=== PATIENT | male | born 1970 | race Caucasian/White ===

== ENCOUNTER 2024-04-14 04:30 | Emergency (ER) | payer OTHER, SELFPAY ==
[2024-04-14] VITALS (11 sets, daily range): BP systolic 102–122; BP diastolic 64–75; PULSE 57–76; RESP 16–21; TEMP 36.5–36.7; O2SAT 92–98; BMI 38.0
--- NOTE | 2024-04-14 04:51 | ED_ITS ---
HPI - General Adult General Chief complaint: Abdominal Pain Stated complaint: ABD Pain, Bloody stool, Nausea Time Seen by Provider: 04/14/24 04:37 Source: patient Mode of arrival: Ambulatory Limitations: no limitations History of Present Illness HPI narrative: Patient is a 54-year-old male. Has had approximately 1 week of bright red blood per rectum. He states that this morning he started to have abdominal cramping. Some nausea but no vomiting. He was not on blood thinners. No urinary symptoms. He has had his gallbladder removed and an inguinal hernia repair but no other abdominal surgeries. He has had a colonoscopy within the past 5 years. Was told that he had irritable bowel but otherwise no other abnormalities noted. He does have history of atrial fibrillation. Has had an ablation. Also has a history of a pulmonary embolism and was on anticoagulation for about 3 months afterwards. This was attributed to the COVID vaccine. He was no longer on anticoagulation. Related Data Allergies Allergy/AdvReac Type Severity Reaction Status Date / Time No Known Drug Allergies Allergy Verified 04/14/24 05:00 Review of Systems Review of Systems ROS Unobtainable: All systems reviewed & are unremarkable except as noted in HPI and below Patient History Social History Smoking Status: Never smoker Exam Initial Vital Signs Initial Vital Signs: Vital Signs Pulse Rate 62 04/14/24 04:37 Respiratory Rate 16 04/14/24 04:37 Pulse Oximetry 98 04/14/24 04:37 Const General: cooperative, comfortable and No ill appearing HENMT Head: normal to inspection and normocephalic Resp Effort & Inspection: normal respiratory effort Auscultation: clear to auscultation bilaterally Cardio Rate: regular rate Rhythm: regular rhythm GI Inspection: normal to inspection Palpation: soft, No firm and No tender Skin General: no rashes or lesions noted Neuro General: patient alert, patient awake, patient oriented x3 and moves all extremities Extrem General: normal to inspection and capillary refill normal Course Orders Ordered: ED Orders 04/14/24 04:44 Complete Blood Count AUTO DIFF Stat Comprehensive Metabolic Panel Stat Lipase Stat 04/14/24 04:52 CT abdomen pelvis w con Stat 04/14/24 04:54 GI Panel (Film Array) Stat Urine Culture Stat Urine Microscopic Stat Discontinued Medications Hydrocodone Bitart/Acetaminophen (Hydrocodone/Acet 5/325 Tablet) 1 tab PO NOW ONE Stop: 04/14/24 05:17 Last Admin: 04/14/24 05:39 Dose: Not Given Documented By: RADHA Ketorolac Tromethamine (Ketorolac 30 Mg/Ml Vial) 30 mg IV NOW ONE Stop: 04/14/24 05:31 Last Admin: 04/14/24 05:32 Dose: 30 mg Documented By: AFRICA Vital Signs Vital signs: Vital Signs - 8 hr 04/14/24 04:37 04/14/24 04:38 04/14/24 04:38 Temperature Pulse Rate 62 60 Respiratory Rate 16 20 Blood Pressure 119/75 Pulse Oximetry 98 97 Oxygen Delivery Method 04/14/24 04:49 04/14/24 05:14 04/14/24 05:15 Temperature 98.1 F Pulse Rate 60 76 Respiratory Rate 16 Blood Pressure 119/75 122/71 Pulse Oximetry 97 92 Oxygen Delivery Method Room Air 04/14/24 05:15 04/14/24 05:30 04/14/24 05:30 Temperature Pulse Rate 70 57 L Respiratory Rate 16 21 Blood Pressure 114/64 Pulse Oximetry 98 96 Oxygen Delivery Method Room Air 04/14/24 05:48 04/14/24 05:48 Temperature Pulse Rate 62 Respiratory Rate 17 Blood Pressure 107/71 Pulse Oximetry 97 Oxygen Delivery Method Medical Decision Making Lab Data Lab results reviewed: Yes I reviewed the patient's lab results. 04/14/24 04:44 04/14/24 04:44 Labs: Lab Results 04/14/24 04/14/24 Range/Units 04:44 04:54 WBC 6.6 (4.5-11.0) X10^3/uL RBC 4.23 L (4.5-5.9) X10^6/uL Hgb 13.0 L (13.5-17.5) g/dL Hct 37.1 L (41-53) % MCV 87.5 (80-100) fL MCH 30.7 (26-34) PG MCHC 35.1 (30-36) % RDW 14.1 (11.6-14.8) % Plt Count 233 (150-400) X10^3/uL Neut % (Auto) 57.1 (50-75) % Lymph % (Auto) 30.1 (25-40) % Coffee % (Auto) 9.5 (3-14) % Eos % (Auto) 2.9 (2-4) % Baso % (Auto) 0.4 (0-2) % Neut # (Auto) 3800 (5761-0475) /uL Lymph # (Auto) 2000 (5895-6383) /uL Coffee # (Auto) 600 (0-900) /uL Eos # (Auto) 200 (0-450) /uL Baso # (Auto) 0 (0-100) /uL Sodium 138 (137-145) mmol/L Potassium 3.6 (3.4-5.1) mmol/L Chloride 108 H (98-107) mmol/L Carbon Dioxide 26 (22-32) mmol/L BUN 14 (9-20) mg/dL Creatinine 0.92 (0.66-1.25) mg/dL Estimated GFR > 60 (>60) mL/min BUN/Creatinine Ratio 15.2 (6-22) Glucose 101 H (70-100) mg/dL Calcium 8.3 L (8.4-10.2) mg/dL Total Bilirubin 0.4 (0.2-1.3) mg/dL AST 24 (17-59) IU/L ALT 31 (<50) IU/L Alkaline Phosphatase 49 (38-126) U/L Total Protein 6.5 (6.3-8.2) g/dL Albumin 4.0 (3.5-5.0) g/dL Globulin 2.5 (1.7-4.1) g/dL Albumin/Globulin Ratio 1.6 (1.0-2.8) Lipase 74 (23-300) U/L Urine RBC None seen (0-5/HPF) Urine WBC None seen (0-5/HPF) Ur Squamous Epith Cells None seen (0-5/HPF) Urine Bacteria None seen (None) Ur Culture Indicated? Cult not indicated Vol Urine Centrifuged 10ml (spun) Stl C. cayetanensis PCR Not detected (Not Detect) Stool Rotavirus (PCR) Not detected (Not Detect) Stool Adenovirus (PCR) Not detected (Not Detect) Stool Astrovirus (PCR) Not detected (Not Detect) Stool Cryptosporidium PCR Not detected (Not Detect) Stl E.coli Shiga Tox PCR Not detected (Not Detect) St Sh/Enteroin Ecoli PCR Not detected (Not Detect) Stl Enterotoxigenic E PCR Not detected (Not Detect) Stool EPEC (PCR) Not detected (Not Detect) Stl E. histolytica PCR Not detected (Not Detect) Stool Giardia Lamblia PCR Not detected (Not Detect) Stool Sapovirus (PCR) Not detected (Not Detect) Stl P. shigelloides PCR Not detected (Not Detect) St Y.enterocolitica PCR Not detected (Not Detect) Stool Vibrio (PCR) Not detected (Not Detect) Stl Vibrio cholerae PCR Not detected (Not Detect) Stl Enteroaggr Ecoli PCR Not detected (Not Detect) Stl Norovirus GI/GII PCR Not detected (Not Detect) Campylobacter (PCR) Not detected (Not Detect) C. difficile Tox (PCR) Not detected (Not Detect) Salmonella (PCR) Not detected (Not Detect) Urine Dip Bedside Urine Glucose Negative Bedside Urine Bilirubin - Negative Bedside Urine Ketone - Negative Urine Specific Prichard 1.025 Bedside Urine Occult Blood + Bedside Urine pH 6.0 Bedside Urine Protein - Negative Bedside Urine Urobilinogen - Negative Bedside Urine Nitrite - Negative Bedside Urine Leukocytes - Negative Esterase Point of care testing: Urine Dip Bedside Urine Glucose Negative Bedside Urine Bilirubin - Negative Bedside Urine Ketone - Negative Urine Specific Prichard 1.025 Bedside Urine Occult Blood + Bedside Urine pH 6.0 Bedside Urine Protein - Negative Bedside Urine Urobilinogen - Negative Bedside Urine Nitrite - Negative Bedside Urine Leukocytes - Negative Esterase Imaging Data CT scan - abdomen/pelvis: Radiologist's Impression: Mild diffuse circumferential wall thickening of the sigmoid colon possibly related to underdistention however a colitis could also have this appearance. No pericolonic focal drainable collection or pneumoperitoneum. Bladder wall thickening which can be seen in the setting of infection or cystitis Critical Care Time Critical Care Time Attestation: Patient does have a benign abdominal exam. His vital signs are unremarkable. H&H is not at a point that would require any sort of blood transfusion and he has been bleeding for the past week. CT scan shows a colitis. GI panel was negative. No indication for antibiotics. Patient has had hemorrhoids in the past. I suspect that his the source of his symptoms today. Plan will be is to have him follow-up with General surgery. He was had a colonoscopy within the past 3 years which lessens the concern for colon cancers. He was given return precautions and follow-up instructions. He expressed understanding and agreement. Discharge Plan Departure Patient Disposition: Home Clinical Impression: Rectal bleeding Instructions: DI for Rectal Bleeding Activity Restrictions/Additional Instructions: I do recommend that you contact the General surgery Department of the number provided below for a follow-up. It is important that you were having regular soft bowel movements and avoiding times of constipation and also diarrhea. If your symptoms worsen or you develop new symptoms please return to the emergency department for further evaluation. Referrals: Raymon Muñiz MD [Physician] - Stand Alone Forms: Patient Portal/API
--- NOTE | 2024-04-14 04:52 | DI.CT.S_ITS ---
PROCEDURE: CT ABDOMEN PELVIS W CON INDICATIONS: gi bleeding with abd pain TECHNIQUE: After the administration of intravenous contrast, axial sections acquired from the lung bases to the pubic symphysis. Coronal and sagittal reformats were performed. For radiation dose reduction, the following was used: automated exposure control, adjustment of mA and/or kV according to patient size. COMPARISON: None. FINDINGS: Lower thorax: The lung bases are clear. Heart size normal. No hiatal hernia. Liver: The liver is diffusely decreased in attenuation without focal mass lesion. Biliary system: Cholecystectomy. No intra or extrahepatic bile duct dilation. Pancreas: Unremarkable without mass or inflammation evident. Spleen: Normal in size and density. Adrenals: Normal morphology and density. Reproductive system: Unremarkable as visualized. Urinary system: Normal renal size and attenuation. No renal calculi, hydronephrosis, or solid mass present. Urinary bladder nondistended. Gastrointestinal system: Multiple diverticula arise from the sigmoid colon. There is mid sigmoid wall thickening with suggestion of pericolonic edema. No abscess or free fluid. Appendix: Normal appendix identified. No evidence of appendicitis. Peritoneal spaces: No mesenteric or retroperitoneal adenopathy. No free air. No free fluid. Vasculature: The IVC, aorta and iliac vasculature are unremarkable. Abdominal wall: Abdominal wall intact without evidence of ventral or inguinal hernias. Musculoskeletal: Normal bone mineralization. No acute fractures. IMPRESSION: Sigmoid diverticulosis and mild wall thickening with suggestion of pericolonic edema mid sigmoid. Mild diverticulitis would be possible if clinically consistent. No obstruction, abscess perforation. Note: This final report is concordant with the preliminary after-hours interpretation provided by [employer] Approved by: Galo Pérez M.D. on 04/14/2024 at 8:42
[2024-04-14 05:02] LABS: Add Manual Diff / Slide Review NO; Basophils Absolute Auto 0 /uL (0-100); Basophils Percent Auto 0.4 % (0-2); Eosinophils Absolute Auto 200 /uL (0-450); Eosinophils Percent Auto 2.9 % (2-4); Hematocrit 37.1 % (41-53); Lymphocytes Absolute Auto 2000 /uL (1100-4500); Lymphocytes Percent Auto 30.1 % (25-40); Mean Corpuscular HGB Conc 35.1 % (30-36); Mean Corpuscular Hemoglobin 30.7 PG (26-34); Mean Corpuscular Volume 87.5 fL (80-100); Monocytes Absolute Auto 600 /uL (0-900); Monocytes Percent Auto 9.5 % (3-14); Neutrophils Absolute Auto 3800 /uL (1500-7000); Neutrophils Percent Auto 57.1 % (50-75); Platelet Count 233 X10^3/uL (150-400); Red Blood Cell Count 4.23 X10^6/uL (4.5-5.9); Red Cell Distribution Width 14.1 % (11.6-14.8); White Blood Cell Count 6.6 X10^3/uL (4.5-11.0)
[2024-04-14 05:23] LABS: Alanine Aminotransferase 31 IU/L (<50); Albumin Globulin Ratio 1.6 (1.0-2.8); Alkaline Phosphatase 49 U/L (38-126); Aspartate Aminotransferase 24 IU/L (17-59); BUN Creatinine Ratio 15.2 (6-22); Bilirubin Total 0.4 mg/dL (0.2-1.3); Blood Urea Nitrogen 14 mg/dL (9-20); Calcium 8.3 mg/dL (8.4-10.2); Carbon Dioxide 26 mmol/L (22-32); Chloride 108 mmol/L (98-107); Estimated Glomerular Filt Rate > 60 mL/min (>60); Globulin 2.5 g/dL (1.7-4.1); Glucose 101 mg/dL (70-100); HEMOLYSIS < 15 (0-50); Lipase 74 U/L (23-300); Potassium 3.6 mmol/L (3.4-5.1); Sodium 138 mmol/L (137-145); Total Protein 6.5 g/dL (6.3-8.2)
[2024-04-14] MEDS: KETOROLAC 30 MG/ML VIAL IV (05:32)
[2024-04-14 06:21] LABS: Bacteria Urine None Seen; Culture Indicated Urine Cult Not Indicated; RBC Urine None Seen (0-5/HPF); Squamous Epithelial Cell Urine None Seen (0-5/HPF); Urine Volume 10mL (spun); WBC Urine None Seen (0-5/HPF)
[2024-04-14 06:51] LABS: Adenovirus F 40/41 Not Detected (Not Detect); Astrovirus Not Detected (Not Detect); Campylobacter Not Detected (Not Detect); Clostridium difficile toxin AB Not Detected (Not Detect); Cryptosporidium Not Detected (Not Detect); Cyclospora cayetanensis Not Detected (Not Detect); Entamoeba histolytica Not Detected (Not Detect); Enteroaggregative E.coli Not Detected (Not Detect); Enteropathogenic E.coli Not Detected (Not Detect); Enterotoxigenic E.coli It/st Not Detected (Not Detect); Giardia lamblia Not Detected (Not Detect); Norovirus GI/GII Not Detected (Not Detect); Plesiomonsa shigelloides Not Detected (Not Detect); Rotavirus A Not Detected (Not Detect); Salmonella Not Detected (Not Detect); Sapovirus Not Detected (Not Detect); Shiga-like toxin-prod E.coli Not Detected (Not Detect); Shigella/Enteroinvasive E.coli Not Detected (Not Detect); Vibrio Not Detected (Not Detect); Vibrio cholerae Not Detected (Not Detect); Yersinia enterocolitica Not Detected (Not Detect)
== END 2024-04-14 07:21 | disposition home or self-care (01) ==
PROVIDERS: Emergency Provider Emergency Medicine
DX: K62.5 Hemorrhage of anus and rectum (principal)
CPT/HCPCS: 36415; 74177; 80053; 81003; 81015; 83690; 85025; 87086; 87507; 96374; 99284; J1885; Q9967

== ENCOUNTER 2024-05-08 00:45 | Emergency (ER) | payer OTHER, SELFPAY ==
[2024-05-08] VITALS (10 sets, daily range): BP systolic 107–127; BP diastolic 54–95; PULSE 55–69; RESP 16–25; TEMP 36.3; O2SAT 92–97
--- NOTE | 2024-05-08 00:53 | EKG_ITS ---
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
--- NOTE | 2024-05-08 01:07 | ED.CHESTPAIN ---
HPI - Chest Pain General Chief Complaint: Chest Pain Stated Complaint: chest pain, tightness cardiac history Time Seen by Provider: 05/08/24 00:57 Source: patient Mode of arrival: Ambulatory History of Present Illness HPI narrative: 54-year-old gentleman with a history of hypertension, paroxysmal atrial fibrillation post ablation currently on sotalol still with intermittent episodes lasting 5-10 minutes of atrial fibrillation. Family history significant for father who at 49 after for cardiac events and a grandfather who at the age of 39 from cardiac events. Patient reports that his cardiac ablation was done in [place] he did have a concurrent angiogram that did not show significant coronary artery disease. He presents complaining of chest tightness started at 9:30 a.m. this evening as he was watching television. Initially felt it was indigestion took some Tums with no help. The tightness continued did not seem to be relieved with walking or with resting. Was slightly dyspneic. The maximum pain/chest tightness he describes as a 7/10 in on arrival in the emergency department is approximately 6/10. There was no nausea, diaphoresis no lower extremity edema. He has not complaining of palpitations or any sensation of atrial fibrillation. He has not recently been sick. Related Data Allergies Allergy/AdvReac Type Severity Reaction Status Date / Time No Known Drug Allergies Allergy Verified 04/14/24 05:00 Review of Systems Review of Systems Narrative: Pertinent positive and negative findings as per HPI Patient History Medical History (Updated 05/08/24 @ 04:14 by Krysten Velez MD) Paroxysmal atrial fibrillation Social History Smoking Status: Never smoker Smoking Status: Never smoker Substance Use Type: does not use Exam Initial Vital Signs Initial Vital Signs: Vital Signs Temperature 97.3 F L 05/08/24 00:55 Pulse Rate 67 05/08/24 00:55 Respiratory Rate 16 05/08/24 00:55 Blood Pressure 113/79 05/08/24 00:55 Pulse Oximetry 97 05/08/24 00:55 Oxygen Delivery Method Room Air 05/08/24 00:55 General: Healthy appearing, in no acute distress. Able to give a complete and coherent history. Well-nourished well-developed HEENT: Moist mucous membranes, normal sclera with reactive pupils, Neck: No JVD, supple Respiratory: Lungs are clear to auscultation, no wheezing no rales no rhonchi. Full and symmetrical air movement Cardiac: Regular rate and rhythm no murmurs no bruits Abdomen: Soft, nontender, good bowel tones, no flank pain Skin: Warm and dry, no rashes Neurologic: Grossly neurologically intact with no obvious asymmetries or abnormalities Extremities: No trauma, well perfused Psych: Cooperative, appropriate insight and affect Course Orders Ordered: ED Orders 05/08/24 00:53 EKG-12 Lead Stat 05/08/24 01:07 Comprehensive Metabolic Panel Stat Lipase Stat NT-proBNP (BNP-Adult 18+) Stat Troponin & CK Cardiac Panel Stat 05/08/24 01:16 XR chest 1V Stat 05/08/24 01:50 Complete Blood Count AUTO DIFF Stat 05/08/24 03:04 Trop I [Troponin I] Stat Nitroglycerin (Nitroglycerin 0.4 Mg Sl Tab) 0.4 mg SL [id number] PRN PRN Reason: Chest Pain Last Admin: 05/08/24 01:45 Dose: 0.4 mg Documented By: Admin: 05/08/24 01:32 Dose: 0.4 mg Documented By: SHI Discontinued Medications Aspirin (Aspirin 81 Mg Chew Tab) 324 mg PO NOW ONE Stop: 05/08/24 01:16 Last Admin: 05/08/24 01:26 Dose: 324 mg Documented By: SHI Ketorolac Tromethamine (Ketorolac 30 Mg/Ml Vial) 15 mg IV NOW ONE Stop: 05/08/24 02:17 Last Admin: 05/08/24 02:25 Dose: 15 mg Documented By: LESLIE Vital Signs Vital signs: Vital Signs - 8 hr 05/08/24 00:55 05/08/24 01:30 05/08/24 01:45 Temperature 97.3 F L Pulse Rate 67 61 62 Respiratory Rate 16 18 16 Blood Pressure 113/79 127/95 H 124/76 Pulse Oximetry 97 96 94 Oxygen Delivery Method Room Air 05/08/24 01:53 05/08/24 01:57 05/08/24 01:57 Temperature Pulse Rate 64 61 Respiratory Rate 20 22 Blood Pressure 115/63 Pulse Oximetry 94 93 Oxygen Delivery Method 05/08/24 02:00 05/08/24 02:00 05/08/24 02:30 Temperature Pulse Rate 69 55 L Respiratory Rate 24 20 Blood Pressure 115/54 L Pulse Oximetry 92 94 Oxygen Delivery Method 05/08/24 02:30 05/08/24 03:00 05/08/24 03:00 Temperature Pulse Rate 56 L Respiratory Rate 25 H Blood Pressure 107/70 111/71 Pulse Oximetry 94 Oxygen Delivery Method 05/08/24 03:30 05/08/24 03:30 Temperature Pulse Rate 56 L Respiratory Rate 16 Blood Pressure 112/69 Pulse Oximetry 94 Oxygen Delivery Method MDM - Chest Pain Lab Data 05/08/24 01:50 05/08/24 01:07 Labs: Lab Results 05/08/24 05/08/24 05/08/24 Range/Units 01:07 01:50 03:04 WBC 10.0 (4.5-11.0) X10^3/uL RBC 4.37 L (4.5-5.9) X10^6/uL Hgb 13.3 L (13.5-17.5) g/dL Hct 38.0 L (41-53) % MCV 87.0 (80-100) fL MCH 30.4 (26-34) PG MCHC 34.9 (30-36) % RDW 14.3 (11.6-14.8) % Plt Count 242 (150-400) X10^3/uL Neut % (Auto) 67.9 (50-75) % Lymph % (Auto) 21.8 L (25-40) % Clinch % (Auto) 7.5 (3-14) % Eos % (Auto) 2.2 (2-4) % Baso % (Auto) 0.6 (0-2) % Neut # (Auto) 6800 (0674-8775) /uL Lymph # (Auto) 2200 (9546-7071) /uL Clinch # (Auto) 700 (0-900) /uL Eos # (Auto) 200 (0-450) /uL Baso # (Auto) 100 (0-100) /uL Sodium 140 (137-145) mmol/L Potassium 3.7 (3.4-5.1) mmol/L Chloride 108 H (98-107) mmol/L Carbon Dioxide 25 (22-32) mmol/L BUN 14 (9-20) mg/dL Creatinine 0.91 (0.66-1.25) mg/dL Estimated GFR > 60 (>60) mL/min BUN/Creatinine Ratio 15.4 (6-22) Glucose 99 (70-100) mg/dL Calcium 9.4 (8.4-10.2) mg/dL Total Bilirubin 0.8 (0.2-1.3) mg/dL AST 26 (17-59) IU/L ALT 29 (<50) IU/L Alkaline Phosphatase 46 (38-126) U/L Total Creatine Kinase 43 L (55-170) U/L Troponin I < 0.012 < 0.012 (0.01-0.034) ng/mL NT-Pro-B Natriuret Pep 36 (<125) pg/mL Total Protein 7.2 (6.3-8.2) g/dL Albumin 4.2 (3.5-5.0) g/dL Globulin 3.0 (1.7-4.1) g/dL Albumin/Globulin Ratio 1.4 (1.0-2.8) Lipase 74 (23-300) U/L MDM Narrative Medical decision making narrative: CC: Chest tightness Complicating co-morbidities: Paroxysmal atrial fibrillation post cardiac ablation Data collected from: patient Differential considered: Acute coronary syndrome, arrhythmia, pericardial effusion, viral syndrome Exam documented above, pertinent findings include: Exam is entirely benign. No reproducible chest pain Lab Test results independently reviewed as above. Pertinent findings: CBC is unremarkable without leukocytosis Chemistries are reassuring normal renal function Initial troponin is undetectable Repeat troponin is undetectable Independently reviewed EKG: EKG shows sinus rhythm at a rate of 60. No acute ischemic changes Imaging studies independently reviewed: Chest x-ray shows no acute cardiopulmonary pathology Treatments: Aspirin is given, sublingual nitroglycerin is given this does not influence his pain Discussion: 54-year-old gentleman with a history of paroxysmal atrial fibrillation presents with onset of chest pressure at rest tonight. He does not have his gallbladder stool in place. Workup was quite reassuring. There was no evidence of acute coronary syndrome with initial and repeat troponins unremarkable reassuring EKGs normal chest x-ray no suggestion of liver abnormalities, acute abdomen or alternative diagnosis that would require further evaluation. Patient states that he is feeling significantly improved with minimal intervention on our part. Reassured him that today's visit was appropriate encourage him to follow up with his primary care physician continue all usual medications and he is safe for discharge home Discharge Plan Departure Patient Disposition: Home Clinical Impression: Atypical chest pain Instructions: DI for Atypical Chest Pain Activity Restrictions/Additional Instructions: Thank you for coming into Your workup was actually quite reassuring. I do not see any evidence of heart attack, heart attack like syndrome, pneumonia, collapsed lungs, infection, liver or kidney abnormalities. You stated that the sensation that you are experiencing is improving. Often times we simply need to give her body's the time to the rectus in the appropriate direction. If symptoms are resolving that is wonderful. If you are having changing or new symptoms please feel free to review with your primary care physician or return to the emergency department. Stand Alone Forms: Patient Portal/API
--- NOTE | 2024-05-08 01:16 | DI.RAD.S_ITS ---
PROCEDURE: XR CHEST 1V INDICATIONS: chest pain TECHNIQUE: One view of the chest was acquired. COMPARISON: None. FINDINGS: Surgical changes and devices: None. Lungs and pleura: Lungs are clear. No pleural effusions or pneumothorax. Mediastinum: Mediastinal contours appear normal. Heart size is normal. Bones and chest wall: No suspicious bony lesions. Overlying soft tissues appear unremarkable. IMPRESSION: No acute cardiopulmonary abnormality is seen. Dictated by: Bairon Valencia M.D. on 05/08/2024 at 1:25 Approved by: Bairon Valecnia M.D. on 05/08/2024 at 1:26
[2024-05-08] MEDS: ASPIRIN 81 MG CHEW TAB 324 MG PO (01:26)
[2024-05-08 01:29] LABS: Alanine Aminotransferase 29 IU/L (<50); Albumin 4.2 g/dL (3.5-5.0); Albumin Globulin Ratio 1.4 (1.0-2.8); Alkaline Phosphatase 46 U/L (38-126); Aspartate Aminotransferase 26 IU/L (17-59); BUN Creatinine Ratio 15.4 (6-22); Bilirubin Total 0.8 mg/dL (0.2-1.3); Blood Urea Nitrogen 14 mg/dL (9-20); Calcium 9.4 mg/dL (8.4-10.2); Carbon Dioxide 25 mmol/L (22-32); Chloride 108 mmol/L (98-107); Creatine Kinase 43 U/L (55-170); Estimated Glomerular Filt Rate > 60 mL/min (>60); Glucose 99 mg/dL (70-100); HEMOLYSIS 33 (0-50); Lipase 74 U/L (23-300); Potassium 3.7 mmol/L (3.4-5.1); Sodium 140 mmol/L (137-145); Total Protein 7.2 g/dL (6.3-8.2)
[2024-05-08] MEDS: NITROGLYCERIN 0.4 MG SL TAB SL ×2 (01:32→01:45)
[2024-05-08 01:40] LABS: NT-proBNP (BNP-Adult 18+) 36 pg/mL (<125); Troponin I < 0.012 ng/mL (0.01-0.034)
[2024-05-08 01:55] LABS: Add Manual Diff / Slide Review NO; Basophils Absolute Auto 100 /uL (0-100); Basophils Percent Auto 0.6 % (0-2); Eosinophils Absolute Auto 200 /uL (0-450); Eosinophils Percent Auto 2.2 % (2-4); Hemoglobin 13.3 g/dL (13.5-17.5); Lymphocytes Absolute Auto 2200 /uL (1100-4500); Lymphocytes Percent Auto 21.8 % (25-40); Mean Corpuscular HGB Conc 34.9 % (30-36); Mean Corpuscular Hemoglobin 30.4 PG (26-34); Monocytes Absolute Auto 700 /uL (0-900); Monocytes Percent Auto 7.5 % (3-14); Neutrophils Absolute Auto 6800 /uL (1500-7000); Neutrophils Percent Auto 67.9 % (50-75); Platelet Count 242 X10^3/uL (150-400); Red Blood Cell Count 4.37 X10^6/uL (4.5-5.9); Red Cell Distribution Width 14.3 % (11.6-14.8)
[2024-05-08] MEDS: KETOROLAC 30 MG/ML VIAL 15 MG IV (02:25)
[2024-05-08 03:34] LABS: Troponin I < 0.012 ng/mL (0.01-0.034)
== END 2024-05-08 04:32 | disposition home or self-care (01) ==
PROVIDERS: Emergency Provider Emergency Medicine
DX: R07.89 Other chest pain (principal); I48.0 Paroxysmal atrial fibrillation
CPT/HCPCS: 36415; 71045; 80053; 82550; 83690; 83880; 84484; 85025; 93005; 96374; 99284; J1885

== ENCOUNTER 2025-07-30 07:24 | Emergency (ER) | payer OTHER, SELFPAY ==
[2025-07-30 07:38] VITALS: BP 134/83; PULSE 66; RESP 12; TEMP 37; O2SAT 97; BMI 36.0
--- NOTE | 2025-07-30 07:48 | DI.RAD.S_ITS ---
PROCEDURE: XR SHOULDER RT MIN 2V INDICATIONS: shoulder pain TECHNIQUE: 3 views of the shoulder were acquired. COMPARISON: None. FINDINGS: Bones: No fractures or dislocations. [id number] acromioclavicular joint osteoarthritic changes are seen. No suspicious bony lesions. Visualized ribs appear intact. 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 IMPRESSION: No acute shoulder fracture or dislocation. 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 Dictated by: Ramses López M.D. on 07/30/2025 at 8:51 Approved by: Ramses López M.D. on 07/30/2025 at 8:53
--- NOTE | 2025-07-30 07:49 | ED.EXTPRO ---
HPI - Extremity Problem General Chief complaint: Extremity Problem,Nontraumatic Stated complaint: Right shoulder pain Time Seen by Provider: 07/30/25 07:39 Source: patient Mode of arrival: Ambulatory History of Present Illness HPI Narrative: This is a 55-year-old man with a history of chronic back pain atrial fibrillation not on anticoagulation and irritable bowel. He reports the onset of right shoulder pain yesterday. No associated injury or unusual activity. Pain is mainly along the anterior right shoulder line. He has not noted any numbness or weakness in the arm has not had fevers he has not had joint pain elsewhere has not had similar pain in the past. Patient states that he takes Celebrex occasionally for his back pain also took a dose of Celebrex last night. Also took Tylenol last night has not had any pain medications today. Related Data Allergies Allergy/AdvReac Type Severity Reaction Status Date / Time No Known Drug Allergies Allergy Verified 04/14/24 05:00 Patient History Medical History (Updated 07/30/25 @ 09:51 by Dave Armas MD) Paroxysmal atrial fibrillation tobacco type: smokeless tobacco Exam Narrative Exam Narrative: Pleasant gentleman who appears to be in no distress vital signs are reviewed and normal. Notable to have diminished range of motion of the right shoulder. Has pain with external rotation and pain with ab duction. He tolerates passive ab duction without difficulty. Internal rotation is not painful. The shoulder does not have any visible deformity. He has tenderness along the anterior joint line I do not feel warmth and I do not feel an effusion. There was no discoloration. Along the medial aspect of the scapula, there was a palpable soft tissue mass that is not tender it is not fluctuance, patient reports that this is his mass that he has had for ?years?. Hand is warm with intact pulses and capillary refill. Alert and oriented with normal respiratory effort ambulatory without difficulty Initial Vital Signs Initial Vital Signs: Vital Signs Temperature 98.6 F 07/30/25 07:38 Pulse Rate 66 07/30/25 07:38 Respiratory Rate 12 07/30/25 07:38 Blood Pressure 134/83 07/30/25 07:38 Pulse Oximetry 97 07/30/25 07:38 Oxygen Delivery Method Room Air 07/30/25 07:38 Course Orders Ordered: ED Orders 07/30/25 07:48 XR shoulder RT 2+ views Stat 07/30/25 08:08 CBC Auto Diff [Complete Blood Count AUTO DIFF] Stat CMP [Comprehensive Metabolic Panel] Stat CRP [C-Reactive Protein Quant] Stat ESR [Erythrocyte Sedimentation Rate] Stat Discontinued Medications Acetaminophen (Acetaminophen 325 Mg Tablet) 975 mg PO NOW ONE Stop: 07/30/25 07:49 Last Admin: 07/30/25 07:57 Dose: 975 mg Documented By: SIOBHAN Ketorolac Tromethamine (Ketorolac 30 Mg/Ml Vial) 30 mg IM NOW ONE Stop: 07/30/25 07:49 Last Admin: 07/30/25 07:57 Dose: 30 mg Documented By: SIOBHAN Vital Signs Vital signs: Vital Signs - 8 hr 07/30/25 09:51 Pulse Rate 62 Respiratory Rate 20 Blood Pressure 133/87 Pulse Oximetry 99 Oxygen Delivery Method Room Air MDM - Extremity (Nontraumatic) Lab Data Lab results narrative: No evidence of acute inflammation on CBC sed rate her ESR 07/30/25 08:08 07/30/25 08:08 Labs: Lab Results 07/30/25 Range/Units 08:08 WBC 6.6 (4.5-11.0) X10^3/uL RBC 4.89 (4.5-5.9) X10^6/uL Hgb 15.1 (13.5-17.5) g/dL Hct 42.9 (41-53) % MCV 87.6 (80-100) fL MCH 30.9 (26-34) PG MCHC 35.2 (30-36) % RDW 14.5 (11.6-14.8) % Plt Count 228 (150-400) X10^3/uL Neut % (Auto) 62.2 (50-75) % Lymph % (Auto) 26.5 (25-40) % [place]isle % (Auto) 8.0 (3-14) % Eos % (Auto) 2.7 (2-4) % Baso % (Auto) 0.6 (0-2) % Neut # (Auto) 4100 (0196-3444) /uL Lymph # (Auto) 1700 (4601-9461) /uL Carlisle # (Auto) 500 (0-900) /uL Eos # (Auto) 200 (0-450) /uL Baso # (Auto) 0 (0-100) /uL ESR 4 (0-15) MM/HR Sodium 140 (137-145) mmol/L Potassium 3.9 (3.4-5.1) mmol/L Chloride 105 (98-107) mmol/L Carbon Dioxide 26 (22-32) mmol/L BUN 11 (9-20) mg/dL Creatinine 0.93 (0.66-1.25) mg/dL Estimated GFR > 60 (>60) mL/min BUN/Creatinine Ratio 11.8 (6-22) Glucose 129 H (70-99) mg/dL Calcium 8.8 (8.4-10.2) mg/dL Total Bilirubin 0.5 (0.2-1.3) mg/dL AST 26 (17-59) IU/L ALT 31 (<50) IU/L Alkaline Phosphatase 50 (38-126) U/L C-Reactive Protein < 0.5 (<1.0) mg/dL Total Protein 7.2 (6.3-8.2) g/dL Albumin 4.3 (3.5-5.0) g/dL Globulin 2.9 (1.7-4.1) g/dL Albumin/Globulin Ratio 1.5 (1.0-2.8) Imaging Data Right shoulder: My Impression: Independently reviewed x-rays of right shoulder, no fracture no dislocation. Some calcium in the tendons. MDM Narrative Medical decision making narrative: 55-year-old man with atraumatic right shoulder pain. Considered but do not suspect septic arthritis or gout. No acute imaging abnormality. Recommended symptomatic care with scheduled Celebrex, acetaminophen and follow up with Orthopedic Discharge Plan Departure Patient Disposition: Home Clinical Impression: Acute pain of right shoulder Activity Restrictions/Additional Instructions: Emergency department workup today is reassuring. I do not think that there is anything dangerous causing her right shoulder pain I think it is likely an inflammatory process possibly rotator cuff inflammation. You can apply ice 4 or 5 times a day, leave it on for no more than 10 minutes and keep him direct skin contact. Use your previously prescribed Celebrex and use acetaminophen at regular [id number] doses keeping your total daily dose to no more than 4000 mg. Call to schedule a follow up appointment with Orthopedics. If you develop fevers or other acute symptoms recheck in the emergency department Referrals: Galo Colunga MD [Physician, Orthopedic Surgery] Stand Alone Forms: Patient Portal/API
[2025-07-30] MEDS: KETOROLAC 30 MG/ML VIAL IM (07:57)
[2025-07-30] MEDS: ACETAMINOPHEN 325 MG TABLET 975 MG PO (07:57)
[2025-07-30 08:18] LABS: Add Manual Diff / Slide Review NO; Hematocrit 42.9 % (41-53); Hemoglobin 15.1 g/dL (13.5-17.5); Lymphocytes Absolute Auto 1700 /uL (1100-4500); Mean Corpuscular HGB Conc 35.2 % (30-36); Mean Corpuscular Hemoglobin 30.9 PG (26-34); Mean Corpuscular Volume 87.6 fL (80-100); Platelet Count 228 X10^3/uL (150-400)
[2025-07-30 08:31] LABS: Alanine Aminotransferase 31 IU/L (<50); Albumin 4.3 g/dL (3.5-5.0); Albumin Globulin Ratio 1.5 (1.0-2.8); Alkaline Phosphatase 50 U/L (38-126); Blood Urea Nitrogen 11 mg/dL (9-20); Calcium 8.8 mg/dL (8.4-10.2); Carbon Dioxide 26 mmol/L (22-32); Chloride 105 mmol/L (98-107); Estimated Glomerular Filt Rate > 60 mL/min (>60); Globulin 2.9 g/dL (1.7-4.1); Glucose 129 mg/dL (70-99); HEMOLYSIS 18 (0-50); Potassium 3.9 mmol/L (3.4-5.1); Sodium 140 mmol/L (137-145); Total Protein 7.2 g/dL (6.3-8.2)
[2025-07-30 09:51] VITALS: BP 133/87; PULSE 62; RESP 20; O2SAT 99
== END 2025-07-30 09:57 | disposition home or self-care (01) ==
PROVIDERS: Emergency Provider Emergency Medicine
DX: M25.511 Pain in right shoulder (principal); F17.290 Nicotine dependence, other tobacco product, uncomplicated
CPT/HCPCS: 36415; 73030; 80053; 85025; 85651; 86140; 96372; 99283; 99284; J1885

== ENCOUNTER 2025-09-09 23:52 | Emergency (ER) | payer OTHER, SELFPAY ==
[2025-09-09 23:57] VITALS: BP 125/78; PULSE 61; RESP 20; TEMP 36.6; O2SAT 96; BMI 37.5
--- OUTSIDE RECORDS SUMMARY | 2025-09-09 23:58 | XMS_ITS | Clinical Summary ---
Author Organization [facility] Address [facility] [address] Care Team Providers Care Director Of People Name Role Phone Clinic, [facility] Primary Care Provider Allergies No known active allergies Medications No known medications Social History Tobacco Use Types Packs/Day Years Used Date Smoking Tobacco: Never Assessed Sex and Gender Information Value Date Recorded Sex Assigned at Not on file Legal Sex Male 1:00 PM PST Gender Identity Not on file Sexual Orientation Not on file Last Filed Vital Signs Vital Sign Reading Time Taken Comments Blood Pressure 114/73 08/19/2024 3:30 PM PST Pulse 64 08/19/2024 3:30 PM PST Temperature 36.6 C (97.9 F) 08/19/2024 1:06 PM PST Respiratory Rate 15 08/19/2024 3:30 PM PST Oxygen Saturation 98% 08/19/2024 3:30 PM PST Inhaled Oxygen Concentration - - Weight 108.9 kg (240 lb) 08/19/2024 1:06 PM PST Height 170.2 cm (5' 7) 08/19/2024 1:06 PM PST Body Mass Index 37.59 08/19/2024 1:06 PM PST Plan of Treatment Health Maintenance Due Date Last Done Comments CT Colonography 1969 Colonoscopy 1969 Colorectal Cancer Screening 1969 Disability Screening 1969 FIT-DNA (COLOGUARD) 1969 Hepatitis C Screening 1969 Sigmoidoscopy 1969 HIV Screening 1984 Lipid Panel (Cholesterol Screening) 1987 DTaP/Tdap/Td Vaccine (1 - Tdap) 1988 FIT (FOBT) 2014 Pneumococcal 50+ Years (1 of 1 - PCV) 2019 Zoster (1 of 2) 2019 Drug, Alcohol, and Depression Screening 09/19/2024 SOGIE 09/19/2024 Covid-19 Vaccine (1 - 2024- season) 2025 Influenza Vaccine (#1) 2025 Diabetes Screening 08/19/2029 08/19/2024 RSV Vaccines (1 - 1-dose 75+ series) 2044 Procedures Procedure Name Priority Date/Time Associated Diagnosis Comments COMPREHENSIVE METABOLIC PANEL STAT 08/19/2024 1:12 PM PST from Last 3 Months or Most Recently Relevant to Health Maintenance Results * Comprehensive Metabolic Panel (08/19/2024 1:12 PM PST) Sodium 141 136 - 145 mmol/L 08/19/2024 1:37 PM PST [facility] Potassium 3.7 3.5 - 5.1 mmol/L 08/19/2024 1:37 PM PST [facility] [address] Chloride 109 98 - 111 mmol/L 08/19/2024 1:37 PM PST [facility] [address] CO2 29 21 - 32 mmol/L 08/19/2024 1:37 PM PST [facility] Anion Gap 3 3 - 12 mmol/L 08/19/2024 1:37 PM PST [facility] 710 Glucose 92 70 - 99 mg/dL 08/19/2024 1:37 PM PST [facility] 710 BUN 13 9 - 23 mg/dL 08/19/2024 1:37 PM PST [facility] 710 Creatinine 0.99 0.70 - 1.30 mg/dL 08/19/2024 1:37 PM PST [facility] 710 eGFR (CKD-EPI 2020) 90 >=60 mL/min/1.7 3m2 08/19/2024 1:37 PM PST [facility] Protein, Total 7.2 5.7 - 8.2 g/dL 08/19/2024 1:37 PM PST [facility] 710 Albumin 3.8 3.4 - 5.0 g/dL 08/19/2024 1:37 PM PST [facility] 710 Globulin 3.4 2.2 - 3.5 g/dL 08/19/2024 1:37 PM [facility] 710 Calcium 9.5 8.7 - 10.4 mg/dL 08/19/2024 1:37 PM [facility] 710 Bilirubin, Total 0.4 0.3 - 1.2 mg/dL 08/19/2024 1:37 PM [facility] 710 Alkaline Phosphatase 56 38 - 126 U/L 08/19/2024 1:37 PM [facility] 710 ALT 38 9 - 54 U/L 08/19/2024 1:37 PM [facility] 710 AST 16 13 - 40 U/L 08/19/2024 1:37 PM [facility] 710 Blood Venipuncture / Unknown 08/19/2024 1:12 PM PST 08/19/2024 1:14 PM [facility] us Tressa Ribeiro MD LAB BLOOD ORDERABLES Final Resul t Performing Organization Address City/State/[facility] Co de Phone Number [facility] [phone] [place] [address] from Last 3 Months or Most Recently Relevant to Health Maintenance Insurance [employer] Care Teams Director Of People Relationship Specialty Start Date End Date Clinic, [address], [address] [place] [address] PCP - General 08/19/24
--- NOTE | 2025-09-09 23:59 | DI.RAD.S_ITS ---
PROCEDURE: XR HAND RT MIN 3V INDICATIONS: pain, no known trauma TECHNIQUE: 3 views of the hand(s) acquired. COMPARISON: None. FINDINGS AND IMPRESSION: No displaced fracture or dislocation. Mild scattered background arthrosis. No suspicious soft tissue calcifications. If there is high concern for further derangement, consider MRI evaluation. Dictated by: Fish Collins M.D. on 09/10/2025 at 0:34 Approved by: Fish Collins M.D. on 09/10/2025 at 0:36
--- NOTE | 2025-09-10 01:14 | ED.EXTPRO ---
HPI - Extremity Problem General Chief complaint: Extremity Problem,Nontraumatic Stated complaint: R Hand Pain Time Seen by Provider: 09/10/25 00:32 Source: patient Mode of arrival: Ambulatory History of Present Illness HPI Narrative: 55-year-old male who woke up suddenly with right hand pain without any trauma or injury to the hand. The majority of pain is over the dorsal aspect of the hand over the 2nd and 3rd fingers. He has trouble making a fist. Related Data Allergies Allergy/AdvReac Type Severity Reaction Status Date / Time No Known Drug Allergies Allergy Verified 09/09/25 23:57 Review of Systems Review of Systems ROS Unobtainable: All systems reviewed & are unremarkable except as noted in HPI and below Patient History Medical History (Updated 09/10/25 @ 01:17 by Jan Romero MD) Paroxysmal atrial fibrillation tobacco type: smokeless tobacco Exam Narrative Exam Narrative: General: Patient appears to be in no acute distress, acting appropriately Head: normocephalic, atraumatic, HEENT: Pupils equal round reactive, eyes tracking well, neck supple, no JVD Heart: regular rate and rhythm, no murmurs, rubs, or gallops heard Lungs: clear to auscultation, no adventitious sounds Abdomen: soft , nontender, nondistended, positive bowel sounds Neurological: no focal neurological signs, moving all extremities well, alert and oriented x3, Psych: good judgment ,good insight, mood is normal. ext: right hand dorsal side has pain with palpation over second and third fingers, tinel's sign pos Initial Vital Signs Initial Vital Signs: Vital Signs Temperature 97.8 F 09/09/25 23:57 Pulse Rate 61 09/09/25 23:57 Respiratory Rate 20 09/09/25 23:57 Blood Pressure 125/78 09/09/25 23:57 Pulse Oximetry 96 09/09/25 23:57 Oxygen Delivery Method Room Air 09/09/25 23:57 Course Orders Ordered: ED Orders 09/09/25 23:59 XR hand RT min 3V Stat Discontinued Medications Hydrocodone Bitart/Acetaminophen (Hydrocodone/Acet 5/325 Prepack) 1 bottle MISC DIRECTED ONE Stop: 09/10/25 01:13 Last Admin: 09/10/25 01:21 Dose: 1 bottle Vital Signs Vital signs: Vital Signs - 8 hr 09/09/25 23:57 09/10/25 01:27 Temperature 97.8 F Pulse Rate 61 74 Respiratory Rate 20 20 Blood Pressure 125/78 133/86 Pulse Oximetry 96 99 Oxygen Delivery Method Room Air Room Air MDM - Extremity (Nontraumatic) Imaging Data Extremity x-ray #1: Radiologist's Impression: No displaced fracture or dislocation. Mild scattered background arthrosis. No suspicious soft tissue calcifications. If there is high concern for further derangement, consider MRI evaluation. [facility] Narrative Medical decision making narrative: 55-year-old male with no prior trauma or injury to his right hand woke up with sudden pain over the dorsal aspect of the right 2nd and 3rd fingers of his right hand. After doing a physical exam, it appears that he is most likely dealing with a carpal tunnel syndrome. Patient given a wrist brace and a prepack of some pain medications [place] and will follow up with PCP for further management. Advised to follow up sooner if symptoms are unmanageable. Discharge Plan Departure Patient Disposition: Home Clinical Impression: Carpal tunnel syndrome on right Instructions: DI for Carpal Tunnel Syndrome, How to Perform Stretches for Carpal Tunnel Syndrome Activity Restrictions/Additional Instructions: Follow up with primary and orthopedic surgery for potential intervention and additional tests to confirm carpal tunnel of right side which is suspected today. Use pain meds as prescribed. Can also use [id number] Motrin or Tylenol as needed. Use wrist brace when being more active with right hand. Stand Alone Forms: Patient Portal/API
[2025-09-10 01:27] VITALS: BP 133/86; PULSE 74; RESP 20; O2SAT 99
== END 2025-09-10 01:28 | disposition home or self-care (01) ==
PROVIDERS: Emergency Provider Family Medicine
DX: G56.01 Carpal tunnel syndrome, right upper limb (principal); M79.641 Pain in right hand
CPT/HCPCS: 73130; 99281; 99283